=== PATIENT | male | born 1970 | race Caucasian/White ===

== ENCOUNTER 2017-11-29 21:48 | Emergency (ER) | payer OTHER ==
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
[2017-11-29 23:54] VITALS: BP 106/73
== END 2017-11-29 23:54 | disposition home or self-care (01) ==
LOC: CED 21:48
DX: S20.222A Contusion of left back wall of thorax, initial encounter (principal); S20.91XA Abrasion of unspecified parts of thorax, initial encounter; S16.1XXA Strain of muscle, fascia and tendon at neck level, initial encounter; V18.0XXA Pedal cycle driver injured in noncollision transport accident in nontraffic accident, initial encounter; Y92.410 Unspecified street and highway as the place of occurrence of the external cause; Y99.8 Other external cause status; Y93.55 Activity, bike riding
CPT/HCPCS: 71101-PO